=== PATIENT | female | born 1995 | race Two or more races ===

== ENCOUNTER 2018-12-03 18:04 | Emergency (ER) | payer MEDICAID ==
[~2018-12-03] VITALS: Ht 157.5 cm; Wt 95.5 kg
[2018-12-03 20:40] VITALS: BP 136/68
== END 2018-12-03 20:41 | disposition home or self-care (01) ==
LOC: EMS 18:05
DX: R07.89 Other chest pain (principal)
CPT/HCPCS: 93005

== ENCOUNTER 2019-02-15 14:39 | Emergency (ER) | payer MEDICAID ==
[~2019-02-15] VITALS: Ht 160 cm; Wt 97.7 kg
[2019-02-15 17:16] VITALS: BP 119/78
== END 2019-02-15 18:17 | disposition home or self-care (01) ==
LOC: EMS 14:41
DX: B30.9 Viral conjunctivitis, unspecified (principal); Z90.49 Acquired absence of other specified parts of digestive tract; Z98.890 Other specified postprocedural states

== ENCOUNTER 2024-06-29 00:51 | Emergency (ER) | payer MEDICAID ==
[~2024-06-29] VITALS: Ht 157.5 cm; Wt 115.0 kg
[2024-06-29 00:57] VITALS: TEMP 98.4
[2024-06-29 01:07] LABS: COVID AG,FIA SOURCE NASAL SWAB
[2024-06-29 01:34] LABS: SARS-COV2 (COVID) ANTIGEN,FIA Negative (Negative)
[2024-06-29 02:20] LABS: INFLUENZA TYPE A NEGATIVE FOR TYPE A (NEGATIVE); INFLUENZA TYPE B NEGATIVE FOR TYPE B (NEGATIVE)
[2024-06-29] MEDS ORDERED: ACET-66 PO (03:34)
[2024-06-29] MEDS ORDERED: GUAIFDM PO (03:34)
[2024-06-29] MEDS ORDERED: MICO45CR76 VG (03:34)
[2024-06-29] MEDS ORDERED: DIPH50CA37 PO (03:34)
[2024-06-29] MEDS ORDERED: BENZ-227 PO (03:34)
[2024-06-29 03:40] VITALS: BP 118/70; PULSE 74; RESP 15; O2SAT 96
[2024-06-29] MEDS: BENZONATATE 100 MG CAPSULE PO ONE (03:43)
[2024-06-29] MEDS: GuaiFENesin/D-METHORPHAN [SUGAR-FREE] 200-20MG/10 ML SYRUP UDCUP PO ONE (03:43)
== END 2024-06-29 03:48 | disposition home or self-care (01) ==
LOC: EMS 00:53
DX: J20.9 Acute bronchitis, unspecified (principal); B37.31 Acute candidiasis of vulva and vagina; Z90.49 Acquired absence of other specified parts of digestive tract; Z79.899 Other long term (current) drug therapy; Z20.822 Contact with and (suspected) exposure to COVID-19
CPT/HCPCS: 71045; 87804; 99284